=== PATIENT | female | born 1985 | race Caucasian/White ===

== ENCOUNTER 2017-08-30 22:05 | Emergency (ER) | payer SELFPAY ==
[~2017-08-30] VITALS: Ht 132.1 cm; Wt 102.6 kg
[2017-08-30 22:19] VITALS: BP 119/86
--- NOTE | 2017-08-30 22:55 | NUR ---
PT AMB TO ER BED 10
--- NOTE | 2017-08-30 23:10 | NUR ---
CAME IN W C/O HEADACHE X 2 DAYS AND LOWER ABD PAIN X 1 WEEK. PT REPORTS NAUSEA, DENIES V/D, REPORTS DYSURIA, DENIES HEMATURIA. ABD SOFT, ROUND +TENDERENESS TO RLQ. DENIES PMH/RX/OTC
[2017-08-30] MEDS ORDERED: KETOROLAC 30 MG/ML VIAL IVP ONE (23:25)
[2017-08-30] MEDS ORDERED: NACL 0.9% 1,000 ML IV ONE (23:25)
[2017-08-30] MEDS ORDERED: ONDANSETRON 4 MG/2 ML VIAL IVP ONE (23:25)
--- NOTE | 2017-08-30 23:30 | NUR ---
CT CALLED, TABLET TESTER " IM WITH ICU PT, ILL BE THERE SOON I CAN"
[2017-08-30 23:46] LABS: HEMATOCRIT 41.6 % (36-48); HEMOGLOBIN 13.8 g/dL (12.0-16.0); RED BLOOD CELL COUNT(AUTO) 5.47 MIL/uL (4.20-5.40); WHITE BLOOD COUNT (AUTO) 8.5 K/uL (4.8-10.8)
[2017-08-30 23:47] LABS: MEAN CORPUSCULAR HEMOGLOBIN 25 pg (27-31); MEAN CORPUSCULAR HGB CONC 33 g/dL (33-37); MEAN CORPUSCULAR VOLUME 76 fL (80-94); PLATELET COUNT (AUTO) 195 K/uL (140-450); RED CELL DISTRIBUTION WIDTH 14.5 % (11.6-13.7)
[2017-08-30 23:48] LABS: BASOPHILS # (AUTO) 0.1 K/uL (0.00-0.22); BASOPHILS % (AUTO) 0.7 % (0.0-2.0); EOSINOPHILS % (AUTO) 0.6 % (0.0-4.0); LYMPHOCYTES % (AUTO) 11.4 % (20.5-51.1); MONOCYTES # (AUTO) 0.4 K/uL (0.8-1.0); NEUTROPHILS % (AUTO) 82.3 % (42.2-75.2)
[2017-08-30 23:49] LABS: ANION GAP 14.5 (8-16); CARBON DIOXIDE 27.3 mmol/L (21-32); CREATININE 0.7 mg/dL (0.6-1.3); POTASSIUM 3.8 mmol/L (3.5-5.1)
[2017-08-30 23:55] LABS: ALBUMIN 3.7 g/dL (3.4-5.0); TOTAL BILIRUBIN 0.7 mg/dL (0.0-1.0)
[2017-08-31 00:40] VITALS: BP 134/76
--- NOTE | 2017-08-31 00:40 | NUR ---
Patient discharged with v/s stable. Written and verbal after care instructions given and explained. Patient alert, oriented and verbalized understanding of instructions. Ambulatory with steady gait. All questions addressed prior to discharge. ID band removed. Patient advised to follow up with PMD. Rx of ZOFRAN AND MOTRIN given. Patient educated on indication of medication including possible reaction and side effects. Opportunity to ask questions provided and answered. Addendum: 08/31/17 at 0051 by NALLELY IV removed, catheter intact and site benign. Applied folded 4x4 gauze and tape to stop bleeding.
== END 2017-08-31 00:51 | disposition home or self-care (01) ==
LOC: MED 22:05
DX: R10.31 Right lower quadrant pain (principal); R11.0 Nausea
CPT/HCPCS: 36415; 74176; 80053; 85025; 96361; 96374; 96375; 99285; J1885; J2405; J7030; 81002; 81025

== ENCOUNTER 2018-06-18 19:30 | Emergency (ER) | payer OTHER ==
[~2018-06-18] VITALS: Ht 162.6 cm; Wt 100.7 kg
[2018-06-18 19:47] VITALS: BP 132/73
[2018-06-18 20:43] LABS: BASOPHILS % (AUTO) 0.5 % (0.0-2.0); EOSINOPHILS # (AUTO) 0.1 K/uL (0-0.4); HEMATOCRIT 43.3 % (36-48); HEMOGLOBIN 14.1 g/dL (12.0-16.0); LYMPHOCYTES # (AUTO) 1.1 K/uL (2.5-16.5); LYMPHOCYTES % (AUTO) 15.8 % (20.5-51.1); MEAN CORPUSCULAR HEMOGLOBIN 25 pg (27-31); MEAN CORPUSCULAR HGB CONC 33 g/dL (33-37); MEAN CORPUSCULAR VOLUME 76.1 fL (80-94); MONOCYTES # (AUTO) 0.4 K/uL (0.8-1.0); MONOCYTES % (AUTO) 6.6 % (1.7-9.3); NEUTROPHILS # (AUTO) 5.1 K/uL (1.8-7.7); NEUTROPHILS % (AUTO) 76.1 % (42.2-75.2); PLATELET COUNT (AUTO) 191 K/uL (140-450); RED BLOOD CELL COUNT(AUTO) 5.69 MIL/uL (4.20-5.40); RED CELL DISTRIBUTION WIDTH 16.6 % (11.6-13.7); WHITE BLOOD COUNT (AUTO) 6.7 K/uL (4.8-10.8)
[2018-06-18 20:52] LABS: ANION GAP 14.4 (8-16); CARBON DIOXIDE 26.5 mmol/L (21-32); CREATININE 0.6 mg/dL (0.6-1.3); POTASSIUM 3.9 mmol/L (3.5-5.1)
[2018-06-18 21:57] LABS: APPEARANCE,URINE TURBID (CLEAR); BILIRUBIN,URINE NEGATIVE (NEGATIVE); BLOOD, URINE 3+ (NEGATIVE); COLOR,URINE RED (YELLOW); LEUKOCYTE ESTERASE ,URINE 1+ (NEGATIVE); NITRITE, URINE POSITIVE (NEGATIVE); PH,URINE 5.5 (5.0-9.0); UGLUCOSE TRACE (NEGATIVE)
[2018-06-18 22:02] LABS: RBC,URINE TOO NUMEROUS TO COUN /HPF (0-5); WBC,URINE TOO MANY TO COUNT /HPF (0-5)
[2018-06-18 22:30] VITALS: BP 133/74
== END 2018-06-18 22:30 | disposition home or self-care (01) ==
LOC: MED 19:30
DX: O20.0 Threatened abortion (principal); O23.41 Unspecified infection of urinary tract in pregnancy, first trimester; Z3A.10 10 weeks gestation of pregnancy
CPT/HCPCS: 36415; 76801; 80048; 81001; 81025; 84702; 85025; 86900; 86901; 87086; 99284; Q0092

== ENCOUNTER 2019-01-25 02:42 | Emergency (ER) | payer MEDICAID, OTHER ==
[~2019-01-25] VITALS: Ht 157.5 cm; Wt 109.3 kg
[2019-01-25 02:55] VITALS: BP 131/71
--- NOTE | 2019-01-25 03:05 | NUR ---
PT AMBULATED TO WITH STEADY GAIT. URINE CUP PROVIDED.
--- NOTE | 2019-01-25 03:18 | NUR ---
33F CO FACIAL PAIN 10/10 AND MILLARD FOR 3 HOURS. AOX4. AZERI SPEAKING. DENIES MEDICATION. STATES 32 WEEKS PREGGO. HX GESTATIONAL DIABETES. WILL CONTINUE TO OBSERVE.
[2019-01-25] MEDS ORDERED: ACETAMINOPHEN EXTRA STRENGTH 500 MG TAB PO ONE (03:50)
--- NOTE | 2019-01-25 05:30 | NUR ---
Patient discharged with v/s stable. Written and verbal after care instructions given and explained. Patient alert, oriented and verbalized understanding of instructions. Ambulatory with steady gait. All questions addressed prior to discharge. ID band removed. Patient advised to follow up with PMD. Rx of EXTRA STRENGTH TYLENOL given. Patient educated on indication of medication including possible reaction and side effects. Opportunity to ask questions provided and answered.
== END 2019-01-25 05:30 | disposition home or self-care (01) ==
LOC: MED 02:42
DX: O99.613 Diseases of the digestive system complicating pregnancy, third trimester (principal); K08.89 Other specified disorders of teeth and supporting structures; Z3A.36 36 weeks gestation of pregnancy
CPT/HCPCS: 99282

== ENCOUNTER 2019-07-26 21:45 | Emergency (ER) | payer MEDICAID ==
[~2019-07-26] VITALS: Ht 154.9 cm; Wt 104.3 kg
[2019-07-26 22:03] VITALS: BP 105/90
--- NOTE | 2019-07-26 22:06 | NUR ---
TO LOBBY A/W BED AMBULATORY
[2019-07-26] MEDS ORDERED: IBUPROFEN 800 MG TAB PO ONE (22:15)
--- NOTE | 2019-07-26 22:27 | NUR ---
PT AMBULATED TO BED WITH FAMILY
--- NOTE | 2019-07-26 22:28 | NUR ---
34 YEAR OLD FEMALE COMPLAINS OF COUGH WITH CHEST PAIN DURING COUGHS. PATIENT STATES SHE HAS HAD COUGH SINCE YESTERDAY WITH SORE THROAT AND HEADACHE PRESENT. LUNGS CTABL, BREATHING EVEN AND UNLABORED. SKIN WARM AND DRY. PAITENT AOX4. BED IN LOWEST POSITION, LOCKED, BED RAIL UPX1. TEMP 102.4 PMH - DENIES MEDS - TYLENOL @ 5PM ALLERGIES - NKA
--- NOTE | 2019-07-26 22:48 | NUR ---
STREP AND INFLUENZA SWAB DONE, SENT TO LAB
[2019-07-26 23:34] VITALS: BP 105/90
--- NOTE | 2019-07-26 23:34 | NUR ---
Patient discharged with v/s stable. Written and verbal after care instructions given and explained. Patient alert, oriented and verbalized understanding of instructions. Ambulatory with steady gait. All questions addressed prior to discharge. ID band removed. Patient advised to follow up with PMD. Rx of PROMETHAZINE, AZITHROMYCIN WAS given. Patient educated on indication of medication including possible reaction and side effects. Opportunity to ask questions provided and answered.
== END 2019-07-26 23:34 | disposition home or self-care (01) ==
LOC: MED 21:45
DX: J02.8 Acute pharyngitis due to other specified organisms (principal); B96.89 Other specified bacterial agents as the cause of diseases classified elsewhere; B97.89 Other viral agents as the cause of diseases classified elsewhere
CPT/HCPCS: 87081; 87804; 99283

== ENCOUNTER 2020-08-10 19:00 | Emergency (ER) | payer MEDICAID ==
[~2020-08-10] VITALS: Ht 154.9 cm; Wt 113.4 kg
[2020-08-10 19:17] VITALS: BP 121/80
--- NOTE | 2020-08-10 19:19 | NUR ---
TO LOBBY A/W BED AMBULATORY
--- NOTE | 2020-08-10 19:37 | NUR ---
PT TAKEN TO XRAY
--- NOTE | 2020-08-10 19:50 | NUR ---
35 Y/O FEMALE PRESENTED TO ED C/O RT HAND PAIN THAT RADIATES TO RT SHOULDER X 3 DAYS. PT DENIES TRAUMA OR INJURY TO HAND. + RADIAL PULSES. +CMS. PT DENIES NUMBNESS & TINGLING IN HANDS. CAP REFIL < 3 SEC. PT C/O OF INCREASE PAIN WHEN FLEXING HAND TO THE TOP MEDIAL WRIST. PT HAS BEEN TAKING TYLENOL FOR PAIN W/ MINIMAL RELIEF. PT SITTING IN CHAIR. VSS. NO ACUTE DISTRESS NOTED. PMH: DENIES NKA
--- NOTE | 2020-08-10 20:05 | NUR ---
result back and noted by Ermd and for d/c
[2020-08-10] MEDS ORDERED: NAPR-54 PO (20:18)
[2020-08-10 20:35] VITALS: BP 121/80
== END 2020-08-10 20:35 | disposition home or self-care (01) ==
LOC: MED 19:00
DX: G56.01 Carpal tunnel syndrome, right upper limb (principal); Z79.899 Other long term (current) drug therapy; Z90.49 Acquired absence of other specified parts of digestive tract
CPT/HCPCS: 73130; 99283

== ENCOUNTER 2021-11-06 22:59 | Emergency (ER) | payer MEDICAID ==
[~2021-11-06] VITALS: Ht 157.5 cm; Wt 117.0 kg
[~2021-11-06 22:59] MED LIST: NAPR-54 PO
[2021-11-06 23:56] VITALS: BP 160/89
--- NOTE | 2021-11-07 00:41 | NUR ---
36 YO F BIBS W C/O C SECTIOPN TEAR. PT HAD 1 MO AGO. NO PMH/RX
[2021-11-07] MEDS ORDERED: KETOROLAC 30 MG/ML VIAL IM ONE (01:00)
[2021-11-07 01:27] LABS: BASOPHILS % (AUTO) 0.2 % (0.0-2.0); EOSINOPHILS # (AUTO) 0.1 K/uL (0-0.4); HEMATOCRIT 39.8 % (36-48); HEMOGLOBIN 13.2 g/dL (12.0-16.0); LYMPHOCYTES # (AUTO) 0.8 K/uL (2.5-16.5); LYMPHOCYTES % (AUTO) 12.5 % (20.5-51.1); MEAN CORPUSCULAR HEMOGLOBIN 25 pg (27-31); MEAN CORPUSCULAR HGB CONC 33 g/dL (33-37); MEAN CORPUSCULAR VOLUME 75.3 fL (80-94); MONOCYTES # (AUTO) 0.3 K/uL (0.8-1.0); MONOCYTES % (AUTO) 4.3 % (1.7-9.3); NEUTROPHILS # (AUTO) 5.3 K/uL (1.8-7.7); PLATELET COUNT (AUTO) 198 K/uL (140-450); RED BLOOD CELL COUNT(AUTO) 5.29 MIL/uL (4.20-5.40); RED CELL DISTRIBUTION WIDTH 19.7 % (11.6-13.7); WHITE BLOOD COUNT (AUTO) 6.5 K/uL (4.8-10.8)
[2021-11-07 01:27] LABS: APPEARANCE,URINE SL CLOUDY (CLEAR); BILIRUBIN,URINE NEGATIVE (NEGATIVE); BLOOD, URINE 3+ (NEGATIVE); COLOR,URINE YELLOW (YELLOW); LEUKOCYTE ESTERASE ,URINE 1+ (NEGATIVE); NITRITE, URINE NEGATIVE (NEGATIVE); UGLUCOSE NEGATIVE (NEGATIVE)
[2021-11-07 01:39] LABS: WBC,URINE 0-5 /HPF (0-5)
[2021-11-07 01:45] LABS: ALBUMIN 3.6 g/dL (3.4-5.0); ANION GAP 13.7 (8-16); CARBON DIOXIDE 25.3 mmol/L (21-32); CREATININE 0.7 mg/dL (0.6-1.3); TOTAL BILIRUBIN 0.5 mg/dL (0.0-1.0)
--- NOTE | 2021-11-07 02:00 | NUR ---
Patient appears to be resting comfortably in bed. Vital Signs within normal limits. Respirations even and unlabored.
--- NOTE | 2021-11-07 02:30 | NUR ---
PT TAKEN TO CT
[2021-11-07] MEDS ORDERED: cephALEXin 500 MG CAP PO ONE (03:15)
--- NOTE | 2021-11-07 03:50 | NUR ---
Patient appears to be resting comfortably in bed. Vital Signs within normal limits. Respirations even and unlabored.
--- NOTE | 2021-11-07 04:51 | NUR ---
Pt is sleeping.
--- NOTE | 2021-11-07 05:03 | NUR ---
REPORT RECIEVED FROM LUKE BOWERS
[2021-11-07] MEDS ORDERED: CEPH-588 PO (05:31)
[2021-11-07] MEDS ORDERED: IBUP-2213 PO (05:31)
--- NOTE | 2021-11-07 05:56 | NUR ---
pt reports abdominal pain has resolved. no other complaints.
[2021-11-07 05:57] VITALS: BP 158/86
--- NOTE | 2021-11-07 05:57 | NUR ---
Patient discharged with v/s stable. Written and verbal after care instructions given and explained. Patient alert, oriented and verbalized understanding of instructions. Ambulatory with steady gait. All questions addressed prior to discharge. ID band removed. Patient advised to follow up with PMD. Rx of motrin and keflex given. Patient educated on indication of medication including possible reaction and side effects. Opportunity to ask questions provided and answered.
== END 2021-11-07 05:57 | disposition home or self-care (01) ==
LOC: MED 22:59
DX: O86.20 Urinary tract infection following delivery, unspecified (principal); O24.439 Gestational diabetes mellitus in the puerperium, unspecified control; Z79.1 Long term (current) use of non-steroidal anti-inflammatories (NSAID); Z79.2 Long term (current) use of antibiotics
CPT/HCPCS: 36415; 74176; 80053; 81001; 83690; 84703; 85025; 87086; 96372; 99285; J1885

== ENCOUNTER 2023-07-28 19:27 | Emergency (ER) | payer MEDICAID ==
[~2023-07-28] VITALS: Ht 157.5 cm; Wt 99.8 kg
[~2023-07-28 19:27] MED LIST changes: +CEPH-588 PO; +IBUP-2213 PO
[2023-07-28 19:45] VITALS: BP 128/76; PULSE 81; RESP 18; TEMP 97.9; O2SAT 97
[2023-07-28] MEDS ORDERED: METOCLOPRAMIDE 10 MG TAB PO ONE (20:35)
[2023-07-28 21:28] LABS: BASOPHILS % (AUTO) 0.8 % (0.0-2.0); EOSINOPHILS % (AUTO) 0.4 % (0.0-4.0); HEMATOCRIT 41.9 % (36-48); HEMOGLOBIN 14.5 g/dL (12.0-16.0); LYMPHOCYTES # (AUTO) 1.1 K/uL (2.5-16.5); LYMPHOCYTES % (AUTO) 19.2 % (20.5-51.1); MEAN CORPUSCULAR HEMOGLOBIN 27 pg (27-31); MEAN CORPUSCULAR HGB CONC 35 g/dL (33-37); MEAN CORPUSCULAR VOLUME 77.4 fL (80-94); MONOCYTES # (AUTO) 0.3 K/uL (0.8-1.0); MONOCYTES % (AUTO) 5.1 % (1.7-9.3); NEUTROPHILS # (AUTO) 4.4 K/uL (1.8-7.7); NEUTROPHILS % (AUTO) 74.5 % (42.2-75.2); PLATELET COUNT (AUTO) 214 K/uL (140-450); RED BLOOD CELL COUNT(AUTO) 5.41 MIL/uL (4.20-5.40); RED CELL DISTRIBUTION WIDTH 14.4 % (11.6-13.7); WHITE BLOOD COUNT (AUTO) 5.9 K/uL (4.8-10.8)
[2023-07-28 21:47] LABS: ANION GAP 12.8 (8-16); CALCIUM 8.7 mg/dL (8.5-10.1); CREATININE 0.6 mg/dL (0.6-1.3); POTASSIUM 3.8 mmol/L (3.5-5.1)
[2023-07-28] MEDS ORDERED: METF-346 PO (21:58)
[2023-07-28] MEDS ORDERED: IBUP-2218 PO (21:58)
== END 2023-07-28 22:18 | disposition home or self-care (01) ==
LOC: MED 19:27
DX: R51.9 Headache, unspecified (principal); R07.9 Chest pain, unspecified; M79.602 Pain in left arm; Z79.899 Other long term (current) drug therapy
CPT/HCPCS: 36415; 70450; 71045; 80048; 84484; 85025; 93005; 99285; J8597